=== PATIENT | female | born 1980 ===

== ENCOUNTER 2018-04-11 08:58 | Emergency (ER) | payer SELFPAY ==
[2018-04-11 09:05] VITALS: BP 120/73; PULSE 100; RESP 20; TEMP 100.1; O2SAT 97
[2018-04-11 09:39] LABS: HCG,QUALITATIVE URINE NEGATIVE (NEGATIVE)
[2018-04-11 09:40] LABS: SQUAMOUS EPITHIAL 4 /hpf (0-5); URINE BILIRUBIN NEGATIVE (NEGATIVE); URINE BLOOD 2+ (NEGATIVE); URINE CLARITY Clear (Clear); URINE COLOR Yellow (YELLOW); URINE GLUCOSE (UA) NORMAL (Normal); URINE LEUKOCYTE ESTERASE NEG Leu/uL (Negative); URINE PROTEIN NEGATIVE (NEGATIVE); URINE UROBILINOGEN NORMAL mg/dL (0.2-1.0)
--- NOTE | 2018-04-11 09:55 | C.PDOC ---
History Of Present Illness Patient presents to ED c/o chills, body aches, headache since yesterday. Patient took 1 dose of Ibuprofen yesterday with transiet relief. She denies head injury, visual changes, dizziness, neck pain/stiffness, cough, runny nose, sore throat, ear pain, abdominal pain, vomiting/diarrhea. Time Seen by Provider: 04/11/18 09:22 Chief Complaint (Nursing): Headache History Per: Patient History/Exam Limitations: no limitations Current Symptoms Are (Timing): Still Present Severity: Mild Quality: "Pain" Associated Symptoms: denies: Photophobia, Blurred Vision, Vomiting, Extremity Weakness Past Medical History Reviewed: Historical Data, Nursing Documentation, Vital Signs Vital Signs: Last Vital Signs Temp 100.1 F H 04/11/18 08:59 Pulse 100 H 04/11/18 08:59 Resp 20 04/11/18 08:59 BP 120/73 04/11/18 08:59 Pulse Ox 97 04/11/18 09:55 - Medical History PMH: No Chronic Diseases Surgical History: Appendectomy, Cholecystectomy Family History: States: No Known Family Hx - Social History Hx Alcohol Use: Yes Hx Substance Use: No - Immunization History Hx Tetanus Toxoid Vaccination: No Hx Influenza Vaccination: No Hx Pneumococcal Vaccination: No Review Of Systems Constitutional: Positive for: Chills, Malaise, Other (myalgias/arthralgias) ENT: Negative for: Ear Pain, Nose Congestion, Throat Pain Cardiovascular: Negative for: Chest Pain Respiratory: Negative for: Cough, Shortness of Breath Gastrointestinal: Negative for: Vomiting, Abdominal Pain Skin: Negative for: Rash Neurological: Positive for: Headache. Negative for: Weakness, Numbness, Incoordination, Change in Speech, Confusion, Seizures, Altered Mental Status, Dizziness Physical Exam - Physical Exam Appears: Well, Non-toxic, Other (in mild discomfort ) Skin: Normal Color, Warm, Dry, No Rash Ear(s): Bilateral: Normal Nose: Normal Oral Mucosa: Moist Throat: Normal, No Erythema, No Exudate Neck: Normal, Supple, Other (no meninigmus) Cardiovascular: Rhythm Regular Respiratory: Normal Breath Sounds, No Rales, No Rhonchi, No Wheezing Neurological/Psych: Oriented x3 Gait: Steady ED Course And Treatment O2 Sat by Pulse Oximetry: 97 (RA) Pulse Ox Interpretation: Normal Progress Note: Patient given PO tylenol. UA, Upreg ordered and reviewed. Upreg (-), Toradol IM given. Reevaluation Time: 10:00 Reassessment Condition: Improved (Patient reassesed, symptoms improved and she is ambulating normally in ED. Patient given Rx for Naprosyn, and was instructed to drink plenty of fluids and to follow up with PMD/clinic in 1-2 days. She understands she should return to ED if symptoms worsen.) Disposition Counseled Patient/Family Regarding: Diagnosis, Need For Followup, Rx Given - Disposition Referrals: Alexis Blancas MD [Staff Provider] - Disposition: HOME/ ROUTINE Disposition Time: 10:00 Condition: STABLE Additional Instructions: FOLLOW UP WITH YOUR DOCTOR/CLINIC IN 1-2 DAYS USE MEDICATIONS DIRECTED DRINK PLENTY OF FLUIDS RETURN TO EMERGENCY ROOM IF SYMPTOMS WORSEN SEGUIMIENTO CON LAGOS MDICO / CLNICA EN 1-2 SAAVEDRA USE MEDICAMENTOS SEGN LO INDICADO BEBER MUCHO LQUIDO REGRESE AL RAQUEL DE EMERGENCIA SI LOS SNTOMAS EMPEORAN Prescriptions: Naproxen 375 mg PO BID PRN #20 tablet PRN Reason: pain Instructions: Viral Syndrome (DC) Forms: [employer] (Luxembourger) Print Language: UPPER SORBIAN - Clinical Impression Clinical Impression: Viral syndrome
== END 2018-04-11 10:02 | disposition home or self-care (01) ==
LOC: C.ER 08:58
DX: B34.9 Viral infection, unspecified (principal)
CPT/HCPCS: 81001; 84703; 96372; 99284; J1885

== ENCOUNTER 2018-04-29 01:27 | Emergency (ER) | payer SELFPAY ==
[2018-04-29] MEDS ORDERED: Sodium Chloride 0.9% 500 ML IV ONE (02:07)
[2018-04-29 02:23] LABS: BASO # 0.1 K/uL (0.0-0.2); EOS # 0.2 K/uL (0.0-0.7); EOS % 2.1 % (0.0-4.0); HEMOGLOBIN 12.2 g/dL (11.0-16.0); LYMPH # 3.8 K/uL (1.0-4.3); LYMPH % 35.4 % (20.0-40.0); MEAN CELL VOLUME 83.9 fL (81.0-99.0); MEAN CORPUSCULAR HEMOGLOBIN 28.6 pg (27.0-31.0); MEAN CORPUSCULAR HGB CONC 34.1 g/dL (33.0-37.0); MEAN PLATELET VOLUME 6.9 fL (7.2-11.7); MONO # 0.8 K/uL (0.0-0.8); MONO % 7.5 % (0.0-10.0); NEUT # 5.8 K/uL (1.8-7.0); NRBC % 0.1 % (0.0-2.0); RBC 4.25 Mil/uL (3.80-5.20); RED CELL DISTRIBUTION WIDTH 13.3 % (11.5-14.5); WHITE BLOOD COUNT 10.7 K/uL (4.8-10.8)
[2018-04-29 02:28] LABS: SQUAMOUS EPITHIAL 11 /hpf (0-5); URINE BILIRUBIN NEGATIVE (NEGATIVE); URINE BLOOD NEGATIVE (NEGATIVE); URINE CLARITY Hazy (Clear); URINE COLOR Yellow (YELLOW); URINE GLUCOSE (UA) NORMAL (Normal); URINE LEUKOCYTE ESTERASE NEG Leu/uL (Negative); URINE PROTEIN NEGATIVE (NEGATIVE); URINE UROBILINOGEN NORMAL mg/dL (0.2-1.0)
[2018-04-29 02:36] LABS: HCG,QUALITATIVE URINE NEGATIVE (NEGATIVE)
[2018-04-29 02:41] LABS: ALB/GLOB RATIO 1.3 (1.0-2.1); ALBUMIN 4.5 g/dL (3.5-5.0); ALT/SGPT 213 U/L (9-52); AST/SGOT 85 U/L (14-36); BLOOD UREA NITROGEN 12 mg/dL (7-17); CALCIUM 9.2 mg/dl (8.6-10.4); GFR AFRICAN-AMERICAN > 60; GFR NON-AFRICAN AMERICAN > 60; LIPASE 45 U/L (23-300)
--- NOTE | 2018-04-29 05:06 | C.PDOC ---
History Of Present Illness 38 year old female presents to the ER with a complaint of upper abdominal pain and nausea for the past few days, associated with an episode of vomiting in the ER. Patient has a Hx of appendectomy and cholecystectomy. Denies back pain or fever. Time Seen by Provider: 04/29/18 02:00 Chief Complaint (Nursing): Abdominal Pain History Per: Patient History/Exam Limitations: no limitations Onset/Duration Of Symptoms: Days Current Symptoms Are (Timing): Still Present Location Of Pain/Discomfort: RUQ, LUQ Radiation Of Pain To:: None Quality Of Discomfort: Unable To Describe Associated Symptoms: Nausea, Vomiting. denies: Fever, Chills, Back Pain Exacerbating Factors: None Alleviating Factors: None Recent travel outside of the [place]: No Abnormal Vaginal Bleeding: No Past Medical History Reviewed: Historical Data, Nursing Documentation, Vital Signs Vital Signs: Last Vital Signs Temp 98.3 F 04/29/18 05:25 Pulse 72 04/29/18 05:25 Resp 18 04/29/18 05:25 BP 115/60 04/29/18 05:25 Pulse Ox 100 04/29/18 06:21 Surgical History: Appendectomy, Cholecystectomy Family History: States: Unknown Family Hx - Social History Hx Alcohol Use: Yes Hx Substance Use: No - Immunization History Hx Tetanus Toxoid Vaccination: No Hx Influenza Vaccination: No Hx Pneumococcal Vaccination: No Review Of Systems Constitutional: Negative for: Fever, Chills Cardiovascular: Negative for: Chest Pain, Palpitations Respiratory: Negative for: Cough, Shortness of Breath Gastrointestinal: Positive for: Nausea, Vomiting, Abdominal Pain Musculoskeletal: Negative for: Back Pain Physical Exam - Physical Exam Appears: Non-toxic Skin: Normal Color, Warm, Dry Head: Atraumatic, Normacephalic Eye(s): bilateral: Normal Inspection Oral Mucosa: Moist Chest: Symmetrical, No Tenderness Cardiovascular: Rhythm Regular Respiratory: Normal Breath Sounds, No Rales, No Rhonchi, No Wheezing Gastrointestinal/Abdominal: Soft, Tenderness (epigastric), No Distention, No Guarding, No Rebound, Other (small healed scars to RUQ) Back: No CVA Tenderness Neurological/Psych: Oriented x3, Normal Speech ED Course And Treatment - Laboratory Results Result Diagrams: 04/29/18 02:17 04/29/18 02:17 O2 Sat by Pulse Oximetry: 100 (Room air) Pulse Ox Interpretation: Normal Progress Note: Blood work and urinalysis ordered. Pepcid, zofran, and IV fluids administered. Lab results discussed with patient who states she missed her period and would like to have her blood checked for possible , HCG was check and found to be negative as well. Patient is resting comfortably in the ER in no acute distress, vitals are stable, will discharge home with Rx and instructions to follow up with PMD or return if symptoms worsen. Patient understands and agrees with plan. Disposition Counseled Patient/Family Regarding: Diagnosis - Disposition Referrals: [facility] at [facility] [place] [Outside] Disposition: HOME/ ROUTINE Disposition Time: 05:03 Condition: GOOD Additional Instructions: TAKE MEDS DIRECTED AVOID RED MEAT, GREASY / SPICY FOODS RETURN TO ER IF WORSE Prescriptions: Aluminum Hydroxide/Magnesium H [Maalox 30 ml] 30 ml PO BID #1 b Famotidine [Pepcid] 20 mg PO DAILY #20 tab Ondansetron ODT [Zofran ODT] 4 mg PO DAILY #5 odt Instructions: Gastritis (DC) Forms: [employer] (Montserratian) Print Language: SOLOMON ISLANDER - Clinical Impression Clinical Impression: Gastritis - 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 - Scribe Statement The provider has reviewed the documentation as recorded by the Scribtomas Haro All medical record entries made by the Harryibe were at my direction and personally dictated by me. I have reviewed the chart and agree that the record accurately reflects my personal performance of the history, physical exam, medical decision making, and the department course for this patient. I have also personally directed, reviewed, and agree with the discharge instructions and disposition.
[2018-04-29 05:33] VITALS: BP 115/60; PULSE 72; RESP 18; TEMP 98.3
[2018-04-29 06:15] VITALS: O2SAT 100
== END 2018-04-29 05:25 | disposition home or self-care (01) ==
LOC: C.ER 01:27
DX: K29.70 Gastritis, unspecified, without bleeding (principal)
CPT/HCPCS: 80053; 81001; 83690; 84702; 84703; 85025; 96361; 96374; 96375; 99284; J2405; J7040

== ENCOUNTER 2018-11-08 23:47 | Emergency (ER) | payer SELFPAY ==
[2018-11-09 00:07] VITALS: BP 100/63; PULSE 90; RESP 18; TEMP 98.5; O2SAT 98
[2018-11-09] MEDS ORDERED: Penicillin G Benzathine 1.2 Mill Unit/2 ml Syr IM ONE ×2 (00:24→00:28)
--- NOTE | 2018-11-09 01:10 | C.PDOC ---
History Of Present Illness 38 year old female presents to the ER with a complaint of generalized body aches, subjective fever, and sore throat for the past 2 days. Patient reports having moderate pain when swallowing. Denies cough, sick contact, or recent travel. Time Seen by Provider: 11/09/18 00:09 Chief Complaint (Nursing): Flu-like Symptoms History Per: Patient History/Exam Limitations: no limitations Onset/Duration Of Symptoms: Days (2) Current Symptoms Are (Timing): Still Present Sick Contacts (Context): None Associated Symptoms: Fever (Subjective), Sore Throat, Myalgias. denies: Cough Ear Symptoms: Bilateral: None Recent travel outside of the [place]: No Past Medical History Reviewed: Historical Data, Nursing Documentation, Vital Signs Vital Signs: Last Vital Signs Temp 98.5 F 11/09/18 00:04 Pulse 90 11/09/18 00:04 Resp 18 11/09/18 00:04 BP 100/63 11/09/18 00:04 Pulse Ox 98 11/09/18 00:04 Surgical History: Appendectomy, Cholecystectomy Family History: States: Unknown Family Hx - Social History Hx Alcohol Use: Yes Hx Substance Use: No - Immunization History Hx Tetanus Toxoid Vaccination: No Hx Influenza Vaccination: No Hx Pneumococcal Vaccination: No Review Of Systems Constitutional: Positive for: Fever (Subjective) ENT: Positive for: Throat Pain Respiratory: Negative for: Cough Gastrointestinal: Negative for: Vomiting, Diarrhea Musculoskeletal: Positive for: Other (Generalized body aches) Skin: Negative for: Rash Physical Exam - Physical Exam Appears: Non-toxic Skin: Normal Color, Warm, Dry Head: Atraumatic, Normacephalic Eye(s): bilateral: Normal Inspection Ear(s): Bilateral: Normal Nose: Normal Oral Mucosa: Moist Throat: Other (Enlarged erythematous tonsils with exudates) Neck: Normal, Supple Chest: Symmetrical, No Tenderness Cardiovascular: Rhythm Regular Respiratory: Normal Breath Sounds, No Rales, No Rhonchi, No Wheezing Gastrointestinal/Abdominal: Soft, No Tenderness Neurological/Psych: Oriented x3, Normal Speech ED Course And Treatment O2 Sat by Pulse Oximetry: 98 (Room air) Pulse Ox Interpretation: Normal Progress Note: Viscous lidocaine, bicillin, and motrin administered. Patient is resting comfortably in the ER in no acute distress, afebrile, vitals are stable, will discharge home on antibiotics and instructed to follow up with PMD. Disposition Counseled Patient/Family Regarding: Diagnosis, Need For Followup, Rx Given - Disposition Referrals: [facility] at [facility] [Outside] Disposition: HOME/ ROUTINE Disposition Time: 01:08 Condition: STABLE Additional Instructions: Increase PO fluids Take medications as directed Follow up with PMD or in clinic Return to ER if worse Prescriptions: Ibuprofen [Motrin] 600 mg PO Q6H #30 tab Ondansetron ODT [Zofran ODT] 1 odt PO BID PRN #6 odt PRN Reason: Nausea/Vomiting Instructions: Sore Throat, Adult (DC) Forms: [employer] (Kinyarwanda) Print Language: TAMAZIGHT - Clinical Impression Clinical Impression: Exudative tonsillitis - 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 - Scribe Statement The provider has reviewed the documentation as recorded by the Scribe Mckay Haro All medical record entries made by the Harryibtomas were at my direction and personally dictated by me. I have reviewed the chart and agree that the record accurately reflects my personal performance of the history, physical exam, medical decision making, and the department course for this patient. I have also personally directed, reviewed, and agree with the discharge instructions and disposition.
== END 2018-11-09 01:17 | disposition home or self-care (01) ==
LOC: C.ER 23:47
DX: J03.90 Acute tonsillitis, unspecified (principal)
CPT/HCPCS: 96372; 99283; J0561